=== PATIENT | female | born 1950 | race Caucasian/White ===

== ENCOUNTER 2021-11-11 08:22 | Day surgery (SDC) | payer OTHER, SELFPAY ==
[~2021-11-11] VITALS: Ht 165.1 cm; Wt 70.8 kg
[2021-11-11] MEDS ORDERED: CEFAZOLIN 2 GM IVPB PREMIX 50 ML IV ONE (09:23)
[2021-11-11] MEDS ORDERED: WATER FOR IRRIGATION,STERILE 1,000 ML IRRIG.SOLN IR ONE (11:18)
[2021-11-11] MEDS ORDERED: SEVOFLURANE 15 MIN GAS INH ONE (11:18)
[2021-11-11] MEDS ORDERED: METOCLOPRAMIDE HCL 10 MG/2 ML VIAL IVP ONE (11:18)
[2021-11-11] MEDS ORDERED: LR 1,000 ML IV.SOLN IV ONE (11:18)
[2021-11-11] MEDS ORDERED: ONDANSETRON HCL 4 MG/2 ML VIAL IVP ONE (11:18)
[2021-11-11] MEDS ORDERED: PHENYLEPHRINE HCL 10 MG/ML VIAL (NEOSYNEPHRINE) IV ONE (11:18)
[2021-11-11] MEDS ORDERED: MIDAZOLAM HCL 5 MG/5 ML VIAL IVP ONE (11:18)
[2021-11-11] MEDS ORDERED: PROPOFOL 200MG/ 20ML VIAL (DIPRIVAN) IV ONE (11:18)
[2021-11-11] MEDS ORDERED: BUPIVACAINE /EPINEPHRINE/PF 0.5% 30 ML VIAL INJ ONE (11:18)
[2021-11-11] MEDS ORDERED: KETOROLAC TROMETHAMINE 30 MG VIAL IVP ONE (11:18)
[2021-11-11] MEDS ORDERED: GLYCOPYRROLATE 0.2 MG/ML VIAL IJ ONE (11:18)
[2021-11-11] MEDS ORDERED: ROCURONIUM BROMIDE 10 MG/ML (ZEMURON) IV ONE (11:18)
[2021-11-11] MEDS ORDERED: fentaNYL CITRATE 250 MCG/5 ML AMP IV ONE (11:18)
[2021-11-11] MEDS ORDERED: NS IRRIG SOLN 1000 ML IR ONE (11:18)
[2021-11-11] MEDS ORDERED: LR 1,000 ML IV SCH (12:00)
[2021-11-11] MEDS ORDERED: ONDANSETRON HCL 4 MG/2 ML VIAL IVP PRN (12:00)
[2021-11-11] MEDS ORDERED: KETOROLAC TROMETHAMINE 30 MG VIAL IVP PRN (12:00)
[2021-11-11] MEDS ORDERED: HYDROmorphone 2 MG/ML VIAL IVP PRN (12:00)
[2021-11-11] MEDS ORDERED: HYDROmorphone 1 MG/ML INJ. CARTRIDGE ONE (13:11)
[2021-11-11] MEDS: HYDROmorphone 1 MG/ML INJ. CARTRIDGE IVP PRN ×2 (13:13→13:28)
[2021-11-11 16:26] VITALS: BP_SYST 108
== END 2021-11-11 16:45 | disposition home or self-care (01) ==
LOC: SDS 08:22 → SMU 08:22 → SDS 16:45
PROVIDERS: ATTEND Surgery
DX: K80.10 Calculus of gallbladder with chronic cholecystitis without obstruction (principal); I10 Essential (primary) hypertension; Z79.899 Other long term (current) drug therapy; Z20.822 Contact with and (suspected) exposure to COVID-19
CPT/HCPCS: 36415; 47563; 74300; 87426; 88304; C1727; J0690; J1170; J1885; J2250; J2370; J2405; J2704; J2765; J3010; J3490 ×2; J7120; Q9967; 76000